=== PATIENT | male | born 1945 ===

== ENCOUNTER 2024-03-07 14:13 | Inpatient (IN) ==
[2024-03-07 18:57] LABS: Hematocrit 32.1 % (38-53); Hemoglobin 11.1 g/dL (13.2-16.3); Mean Corpuscular Hemoglobin 32.3 pg (27-33); Mean Corpuscular Hgb Conc 34.6 g/dL (31-36); Mean Corpuscular Volume 93.2 fL (80-97); Mean Platelet Volume 7.8 fL (7.5-11.2); Platelet Count 432 10^3/uL (150-450); Red Blood Count 3.44 10^6/uL (4.06-5.63); Red Cell Distribution Width 13.3 % (12-17)
[2024-03-07 19:21] LABS: Albumin 3.8 g/dL (3.2-5.2); Albumin/Globulin Ratio 1.4 (1-3); Calcium 8.8 mg/dL (8.6-10.3); Creatinine, Serum 9.68 mg/dL (0.67-1.17); Globulin 2.7 g/dL (2-4); Magnesium 2.6 mg/dL (1.9-2.7); Phosphorus 5.5 mg/dL (2.5-5.0); Potassium 4.8 mmol/L (3.5-5.0); Total Bilirubin 0.4 mg/dL (0.2-1.0); Total Protein 6.5 g/dL (6.4-8.9); eGFR CKD-EPI 5.1 (>60)
[2024-03-07 19:31] LABS: TSH Ultra Thyroid Stim Horm 1.6 mcIU/mL (0.34-5.60)
[2024-03-07 19:39] LABS: Free T4 0.71 ng/dL (0.61-1.12)
[2024-03-07] MEDS: D5W 500 ml BAG 500 ML IV ONE (19:39)
[2024-03-07] MEDS: Famotidine IV 10 MG/ML 2 ml VIAL (20 mg) IV SLOW PU SCH (19:43)
[2024-03-07 19:46] LABS: ABS Basophils 0.1 10^3/uL (0.0-0.1); ABS Eosinophils 0.2 10^3/uL (0.0-0.5); ABS Lymphocytes 1.3 10^3/uL (1.0-4.8); ABS Monocytes 1.4 10^3/uL (0.0-1.1); ABS Nucleated RBC 0.02 10^3/ul; Eosinophil % 0.9 %; Lymphocyte % 7.8 %; Nucleated Red Blood Cells % 0.1 %/100WBC (0.0-0.8); RBC Morphology Normal (Normal)
[2024-03-07] MEDS ORDERED: D5W 500 ml BAG 500 ML IV ONE (20:00)
[2024-03-07 20:18] LABS: Urine Appearance Clear; Urine Bilirubin Negative (Negative); Urine Blood 2+ (Negative); Urine Color Light-Yellow; Urine Glucose Negative (Negative); Urine Ketones Trace (Negative); Urine Nitrite Negative (Negative); Urine Protein Negative (Negative); Urine Specific Gravity 1.014 (1.002-1.030); Urine Urobilinogen Negative (Negative); Urine pH 5.5 (5.0-8.0)
[2024-03-07 20:21] LABS: Urine Bacteria Absent /HPF (Absent); Urine Red Blood Cell 2+(6-10/hpf) /HPF (0-Trace); Urine White Blood Cell Trace(0-5/hpf) /HPF (0-Trace)
[2024-03-07] MEDS ORDERED: Sulfur Hexaflouride MICROSPHR 25 MG VIAL IV PRN (20:42)
[2024-03-07] MEDS: Heparin 5000 UNITS/ML 1 mL VIAL SUBCUT SCH (21:57)
[2024-03-07] MEDS: Desmopressin Acetate 2 MCG in NS 0.9% 50 ML 50 ML IVPB ONE (21:57)
[2024-03-07 22:42] LABS: Urine Chloride Concentration < 22 mmol/L; Urine Sodium Concentration 23 mmol/L
[2024-03-07 22:50] LABS: Calcium 8.6 mg/dL (8.6-10.3); Creatinine, Serum 7.4 mg/dL (0.67-1.17); Magnesium 2.4 mg/dL (1.9-2.7); Potassium 4.3 mmol/L (3.5-5.0); eGFR CKD-EPI 7.1 (>60)
[2024-03-07] MEDS: D5W 1000 ml BAG 1,000 ML IV SCH (23:06)
[2024-03-08 00:28] LABS: Osmolality Serum 284 mOsm/kg (275-295)
[2024-03-08 00:28] LABS: Urine Osmo 317 mOsm/kg (150-1150)
[2024-03-08] MEDS: D5W 1000 ml BAG 1,000 ML IV SCH ×3 (02:25→16:49)
[2024-03-08 03:03] LABS: Calcium 8.4 mg/dL (8.6-10.3); Creatinine, Serum 4.71 mg/dL (0.67-1.17); Potassium 3.8 mmol/L (3.5-5.0); eGFR CKD-EPI 12.1 (>60)
[2024-03-08] MEDS ORDERED: Desmopressin Acetate 2 MCG in NS 0.9% 50 ML 50 ML IVPB ONE (04:00)
[2024-03-08] MEDS: Desmopressin Acetate 4 MCG/ML 1 ML SDV IV ONE ×2 (04:00→11:18)
[2024-03-08 05:44] LABS: Hematocrit 28.8 % (38-53); Hemoglobin 10.1 g/dL (13.2-16.3); Mean Corpuscular Hemoglobin 32.3 pg (27-33); Mean Corpuscular Volume 92.4 fL (80-97); Mean Platelet Volume 7.5 fL (7.5-11.2); Platelet Count 402 10^3/uL (150-450); Red Blood Count 3.11 10^6/uL (4.06-5.63); Red Cell Distribution Width 13.3 % (12-17); White Blood Count 11.6 10^3/uL (3.6-10.2)
[2024-03-08 06:15] LABS: ABS Eosinophils 0.6 10^3/uL (0.0-0.5); ABS Monocytes 1.4 10^3/uL (0.0-1.1); ABS Neutrophils 8.5 10^3/uL (1.5-7.6); Eosinophil % 5.1 %; Lymphocyte % 8.7 %
[2024-03-08 06:36] LABS: Calcium 8.4 mg/dL (8.6-10.3); Creatinine, Serum 3.39 mg/dL (0.67-1.17); Magnesium 2.2 mg/dL (1.9-2.7); Potassium 3.8 mmol/L (3.5-5.0)
[2024-03-08] MEDS: Azithromycin 500 mg/250 ml NS 500 MG/250 ML BAG IVPB SCH (08:03)
[2024-03-08] MEDS: cefTRIAXone 1 gm/50 mL D5W 1 GM/50 ML BAG IV SCH (10:06)
[2024-03-08 11:12] LABS: Anion Gap 8 mmol/L (2-16); Blood Urea Nitrogen 34 mg/dL (6-24); CO2 Carbon Dioxide 24 mmol/L (22-32); Chloride 91 mmol/L (101-111); Creatinine, Serum 2.09 mg/dL (0.67-1.17); Glucose 160 mg/dL (70-100); Sodium 123 mmol/L (135-145); eGFR CKD-EPI 32.2 (>60)
[2024-03-08 12:36] LABS: Calcium 8.2 mg/dL (8.6-10.3); Creatinine, Serum 1.97 mg/dL (0.67-1.17); Potassium 3.9 mmol/L (3.5-5.0); eGFR CKD-EPI 34.6 (>60)
[2024-03-08] MEDS: Pantoprazole VIAL 40 MG VIAL IV SCH (14:15)
[2024-03-08 16:37] LABS: Anion Gap 7 mmol/L (2-16); Blood Urea Nitrogen 25 mg/dL (6-24); CO2 Carbon Dioxide 24 mmol/L (22-32); Calcium 7.8 mg/dL (8.6-10.3); Chloride 90 mmol/L (101-111); Creatinine, Serum 1.55 mg/dL (0.67-1.17); Glucose 133 mg/dL (70-100); Sodium 121 mmol/L (135-145); eGFR CKD-EPI 46.1 (>60)
[2024-03-08 20:59] LABS: Creatinine, Serum 1.16 mg/dL (0.67-1.17); Potassium 3.8 mmol/L (3.5-5.0); eGFR CKD-EPI 65.3 (>60)
[2024-03-08] MEDS ORDERED: Famotidine IV 10 MG/ML 2 ml VIAL (20 mg) IV SLOW PU SCH (21:00)
[2024-03-09 04:15] LABS: Calcium 8.2 mg/dL (8.6-10.3); Creatinine, Serum 0.93 mg/dL (0.67-1.17); Magnesium 1.9 mg/dL (1.9-2.7); Potassium 3.7 mmol/L (3.5-5.0); eGFR CKD-EPI 85.1 (>60)
[2024-03-09] MEDS: D5W 1000 ml BAG 1,000 ML IV SCH ×3 (04:28→22:30)
[2024-03-09 04:47] LABS: Hematocrit 27.2 % (38-53); Hemoglobin 9.6 g/dL (13.2-16.3); Mean Corpuscular Hemoglobin 32.9 pg (27-33); Mean Corpuscular Hgb Conc 35.4 g/dL (31-36); Mean Corpuscular Volume 92.9 fL (80-97); Mean Platelet Volume 7.8 fL (7.5-11.2); Platelet Count 398 10^3/uL (150-450); Red Blood Count 2.93 10^6/uL (4.06-5.63); Red Cell Distribution Width 13.4 % (12-17)
[2024-03-09] MEDS: Desmopressin Acetate 4 MCG/ML 1 ML SDV IV ONE (05:06)
[2024-03-09] MEDS: Desmopressin Acetate 2 MCG in NS 0.9% 50 ML 50 ML IVPB ONE ×2 (05:09→20:43)
[2024-03-09 05:42] LABS: ABS Lymphocytes 1.9 10^3/uL (1.0-4.8); ABS Monocytes 1.4 10^3/uL (0.0-1.1); ABS Neutrophils 7.7 10^3/uL (1.5-7.6); ABS Nucleated RBC 0.01 10^3/ul; Eosinophil % 8.6 %; Lymphocyte % 15.7 %; Nucleated Red Blood Cells % 0.1 %/100WBC (0.0-0.8)
[2024-03-09] MEDS: Magnesium Sulfate 2 gm BAG 2 GM/50 ML BAG IVPB ONE (07:59)
[2024-03-09 11:43] LABS: Anion Gap 8 mmol/L (2-16); Blood Urea Nitrogen 11 mg/dL (6-24); CO2 Carbon Dioxide 22 mmol/L (22-32); Calcium 7.7 mg/dL (8.6-10.3); Chloride 93 mmol/L (101-111); Creatinine, Serum 0.68 mg/dL (0.67-1.17); Glucose 124 mg/dL (70-100); Sodium 123 mmol/L (135-145); eGFR CKD-EPI 96.3 (>60)
[2024-03-09 17:44] LABS: Calcium 7.9 mg/dL (8.6-10.3); Creatinine, Serum 0.81 mg/dL (0.67-1.17); Potassium 4.2 mmol/L (3.5-5.0); eGFR CKD-EPI 91.4 (>60)
[2024-03-10 04:43] LABS: Hematocrit 26.9 % (38-53); Hemoglobin 9.2 g/dL (13.2-16.3); Mean Corpuscular Hemoglobin 32.2 pg (27-33); Mean Corpuscular Hgb Conc 34.1 g/dL (31-36); Mean Corpuscular Volume 94.4 fL (80-97); Mean Platelet Volume 7.7 fL (7.5-11.2); Platelet Count 306 10^3/uL (150-450); Red Blood Count 2.85 10^6/uL (4.06-5.63); Red Cell Distribution Width 13.6 % (12-17); White Blood Count 11.1 10^3/uL (3.6-10.2)
[2024-03-10 05:17] LABS: Calcium 7.6 mg/dL (8.6-10.3); Creatinine, Serum 0.71 mg/dL (0.67-1.17); Potassium 3.8 mmol/L (3.5-5.0); eGFR CKD-EPI 95.1 (>60)
[2024-03-10 05:49] LABS: ABS Basophils 0.1 10^3/uL (0.0-0.1); ABS Lymphocytes 2.2 10^3/uL (1.0-4.8); ABS Monocytes 1.1 10^3/uL (0.0-1.1); ABS Neutrophils 6.8 10^3/uL (1.5-7.6); ABS Nucleated RBC 0.01 10^3/ul; Eosinophil % 8.9 %; Lymphocyte % 19.8 %; Nucleated Red Blood Cells % 0.1 %/100WBC (0.0-0.8)
[2024-03-10 05:50] LABS: RBC Morphology Normal (Normal)
[2024-03-10] MEDS: CALCIUM GLUCONATE 1GM/50ML NS 1 GM/50 ML BAG IV ONE (08:21)
[2024-03-10 09:02] LABS: Magnesium 1.9 mg/dL (1.9-2.7)
[2024-03-10 10:24] LABS: Calcium 8.4 mg/dL (8.6-10.3); Creatinine, Serum 0.82 mg/dL (0.67-1.17); Potassium 3.7 mmol/L (3.5-5.0)
[2024-03-10] MEDS: Magnesium Sulfate 2 gm BAG 2 GM/50 ML BAG IVPB ONE (10:44)
[2024-03-10 15:36] LABS: Calcium 8.2 mg/dL (8.6-10.3); Creatinine, Serum 0.87 mg/dL (0.67-1.17); Potassium 4.1 mmol/L (3.5-5.0); eGFR CKD-EPI 89.4 (>60)
[2024-03-10] MEDS: NS 0.45% IV ONE (19:28)
[2024-03-11 02:21] LABS: Calcium 7.6 mg/dL (8.6-10.3); Creatinine, Serum 0.82 mg/dL (0.67-1.17); Potassium 4.2 mmol/L (3.5-5.0)
[2024-03-11] MEDS: D5W 1000 ml BAG 1,000 ML IV SCH (03:40)
[2024-03-11 06:47] LABS: Hemoglobin 9.7 g/dL (13.2-16.3); Mean Corpuscular Hemoglobin 32.9 pg (27-33); Mean Corpuscular Hgb Conc 34.7 g/dL (31-36); Mean Corpuscular Volume 94.9 fL (80-97); Mean Platelet Volume 7.5 fL (7.5-11.2); Platelet Count 430 10^3/uL (150-450); Red Blood Count 2.95 10^6/uL (4.06-5.63); Red Cell Distribution Width 13.5 % (12-17); White Blood Count 15.1 10^3/uL (3.6-10.2)
[2024-03-11 07:27] LABS: Calcium 7.9 mg/dL (8.6-10.3); Creatinine, Serum 0.84 mg/dL (0.67-1.17); Potassium 4.1 mmol/L (3.5-5.0); eGFR CKD-EPI 90.4 (>60)
[2024-03-11 07:46] LABS: ABS Basophils 0.1 10^3/uL (0.0-0.1); ABS Lymphocytes 2.9 10^3/uL (1.0-4.8); ABS Monocytes 1.1 10^3/uL (0.0-1.1); ABS Nucleated RBC 0.02 10^3/ul; Eosinophil % 6.7 %; Large Platelets Present; Lymphocyte % 19.3 %; Nucleated Red Blood Cells % 0.1 %/100WBC (0.0-0.8); Polychromasia 1+
[2024-03-11 09:58] VITALS: BP 148/90
== END 2024-03-11 14:00 | disposition home or self-care (01) | DRG 682 ==
LOC: ICU 17:36 → SUATTDRO 17:36 → MED 03-10 19:22
PROVIDERS: ADMIT Internal Medicine; ATTEND Student in an Organized Health Care Education/Training Program

== ENCOUNTER 2024-05-03 08:10 | Observation (INO) ==
[2024-05-03] MEDS ORDERED: Metoclopramide 5 MG/ML VIAL (10 mg) IV PRN (08:17)
[2024-05-03] MEDS ORDERED: Ondansetron 4 mg VIAL 2 MG/ML 2 ml VIAL IV PRN (08:17)
[2024-05-03] MEDS ORDERED: fentaNYL 100 mcg/2 ml 50 MCG/ML VIAL IV PRN (08:17)
[2024-05-03] MEDS ORDERED: Naloxone 0.4 mg VIAL 0.4 mg/ml 1 ml VIAL IV PRN (08:17)
[2024-05-03 08:50] LABS: Rapid COVID-19 Molecular Undetected (Undetected)
[2024-05-03] MEDS ORDERED: NS 0.45% 1000 ml BAG 1,000 ML IV SCH (09:00)
[2024-05-03] MEDS: Scopolamine 1 mg/72hr PATCH TRANSDERM ONE (09:04)
[2024-05-03] MEDS: Buffered Lidocaine 1% SYRIN 1 ml INTRADERM ONE (09:04)
[2024-05-03] MEDS ORDERED: Midazolam 2 mg/2 ml VIAL 1 mg/ml 2 ml VIAL (2 mg) ONE (09:13)
[2024-05-03] MEDS ORDERED: fentaNYL 100 mcg/2 ml 50 MCG/ML VIAL ONE (09:13)
[2024-05-03] MEDS ORDERED: Lidocaine 2% PF 5 ML VIAL ONE (09:17)
[2024-05-03] MEDS ORDERED: Propofol 10 MG/ML 20 ML BTL ONE (09:17)
[2024-05-03] MEDS ORDERED: HYDROmorphone 0.5 MG/0.5 ML SYRINGE ONE (09:33)
[2024-05-03] MEDS ORDERED: Ondansetron 4 mg VIAL 2 MG/ML 2 ml VIAL ONE (10:42)
[2024-05-03] MEDS ORDERED: Dexamethasone IV 4 MG/ML VIAL 1 ml VIAL ONE (10:42)
[2024-05-03] MEDS ORDERED: Furosemide 20 mg/2 ml IV VIAL ONE (10:54)
[2024-05-03] MEDS: Lactated Ringers 1000 ml BAG 1,000 ML IV SCH (13:19)
[2024-05-03] MEDS: Gentamicin ADULT 320 MG in NS 0.9% 100 ml BAG 100 ML IVPB ONE (13:19)
[2024-05-03] MEDS: Acetaminophen IV 1 GM/100ML 1,000 MG/100 ML BAG IV ONE (13:19)
[2024-05-03] MEDS: Ampicillin ADVAN 2 GM in NS 0.9% 100 ML 100 ML IVPB ONE (13:19)
[2024-05-03] MEDS: Neomycin/Polym/Bacit TOP OINT 15 GM TOPICAL SCH (13:20)
[2024-05-03] MEDS: NS 0.9% 1000 ml BAG 1,000 ML IV SCH (14:32)
[2024-05-03] MEDS: Magnesium Hydroxide LIQ 30 ML UDC PO SCH (22:03)
[2024-05-04 05:56] VITALS: BP 134/73
[2024-05-04] MEDS: Ondansetron 4 mg VIAL 2 MG/ML 2 ml VIAL IV PRN (07:54)
[2024-05-04] MEDS: Influenza Vaccine *TRI* 2024-25* 0.5 ML SYRINGE IM ONE (09:13)
[2024-05-04] MEDS: COVID VAC 24-25 (12+) (Moderna) Syringe 0.5 mL IM ONE (09:15)
== END 2024-05-04 10:30 | disposition home or self-care (01) ==
LOC: SSU 08:10 → OR 08:10
PROVIDERS: ADMIT Urology; ATTEND Urology